=== PATIENT | female | born 1965 | race African-American/Black ===

== ENCOUNTER 2016-11-05 19:25 | Emergency (ER) | payer MEDICARE, MEDICAID ==
[~2016-11-05 19:25] MED LIST: AZOR5TAB4 PO; BUSP10TA PO; CANA100T PO; CYCL5TAB PO; CYMB60CA PO; DULO60 PO; GABA600T PO; HYDR25 PO; METF-324 PO; METF1000 PO; NEUR800T PO; NOVOLOGMXP SQ; NOVORP2 SQ; OMEP20TA PO; PRED5TAB; PREG75; PROM25TA5 PO; ULTR50TA PO; ZOLP10TA3 PO
[2016-11-05 20:14] VITALS: BP 164/96; PULSE 99; RESP 18; TEMP 98.2; O2SAT 100
[2016-11-05 20:53] VITALS: BP 200/94; PULSE 85; RESP 18; TEMP 98.4; O2SAT 98
[2016-11-05] MEDS ORDERED: VICT18IN SQ (21:17)
[2016-11-05] MEDS ORDERED: AMBI10TA PO (21:17)
[2016-11-05] MEDS ORDERED: HYDR-3133 PO (21:17)
[2016-11-05] MEDS ORDERED: CARV12.52 PO (21:17)
[2016-11-05] MEDS ORDERED: METF-382 PO (21:17)
[2016-11-05] MEDS ORDERED: PREG25 PO (21:17)
[2016-11-05] MEDS ORDERED: SACU1TAB4 PO (21:17)
[2016-11-05] MEDS ORDERED: DIGO0.25 PO (21:17)
[2016-11-05] MEDS ORDERED: CYMB60CA PO (21:17)
[2016-11-05] MEDS ORDERED: ONDANSETRON HCL 4 MG/2 ML VIAL IM ONE (21:45)
[2016-11-05] MEDS ORDERED: KETOROLAC TROMETHAMINE 60 MG/2 ML (IM) VIAL IM ONE (21:45)
--- NOTE | 2016-11-05 21:49 | PD ---
HPI Chief Complaint: Psychiatric Symptoms Time Seen by Provider: 21:28 Travel History International Travel<30 days: No Contact w/Intl Traveler<30days: No Traveled to known affect area: No History of Present Illness HPI Patient is a 50-year-old female presents emergency Department under Tara act. Patient has a history of chronic pain, neuropathy and possible rheumatoid arthritis. She was switched by her PCP, Dr. Blanco, from gabapentin to Lyrica approximate 2 weeks ago in hopes that this would be more effective for her pain. However, unfortunately her pain has increased and she has had no 3 days of intractable pain in the bilateral hands, primarily along the MCP's and PIPs. States that this is typical of her chronic pain, just worsened. Unfortunately due to her multiple drug allergies she is not able to take any narcotics and has been managing with Ultram, ibuprofen at home without much relief. Patient states that due to the pain she's not been sleeping. She states she feels "tired of being in pain", and told her mother of this this evening. Patient's mother perceives this to be a suicidal threat, and called 911 and patient was Pacheco acted and brought here. Patient states that she does feel down and occasionally depressed due to all of her underlying medical comorbidities, but in no way shape or form feels suicidal. She has future thinking and has plans to follow up with Dr. Blanco on Monday for adjustment of her Lyrica. PFSH Past Medical History Anemia: Yes Arthritis: Yes Autoimmune Disease: No Anxiety: Yes Depression: Yes Cardiac Catheterization: Yes Cardiovascular Problems: Yes (HEART ATTACK, CHF) Congestive Heart Failure: Yes Cerebrovascular Accident: Yes (2013- LEFT SIDED WEAKNESS) Diabetes: Yes Patient Takes Glucophage: No Diminished Hearing: No Endocrine: Yes Fibromyalgia: Yes Gastrointestinal Disorders: No Hypertension: Yes Insomnia: Yes Medical other: Yes (Hackberry's Disease) Musculoskeletal: Yes (DEGENRATIVE JOINT DISEASE) Neurologic: Yes (NEUROPATHY, STIMULATOR WITH RODS) Psychiatric: Yes Reproductive: Yes (UTERINE PROLAPSE ) Respiratory: No Immunizations Current: No Myocardial Infarction: Yes (2003) Tetanus Vaccination: < 5 Years Influenza Vaccination: No ?: Not Menopausal: Yes : 4 Para: 3 Miscarriage: 1 Tubal Ligation: Yes Past Surgical History Abdominal Surgery: No AICD: Yes Body Medical Devices: RODS, SCREWS IN BACK, STIMULATOR Cardiac Surgery: Yes (Defib/Pacemaker 2016 for CHF, EF 19%) Ear Surgery: No Endocrine Surgery: No Eye Surgery: No Genitourinary Surgery: No Gynecologic Surgery: Yes (RIGHT TUBE REMOVED, TUBAL LIGATION, ABLATION ) Hysterectomy: Yes Joint Replacement: Yes (R KNEE) Neurologic Surgery: Yes (Neuro stimulator for Degenerative disc Disease) Oral Surgery: No Pacemaker: Yes Thoracic Surgery: Yes (HERNIATED DISC/HARDWARE REMOVED 11/2013) Other Surgery: Yes (BREAST REDUCTION) Social History Alcohol Use: No Tobacco Use: No Substance Use: No Allergies-Medications (Allergen,Severity, Reaction): Coded Allergies: RODOLFO Inhibitors (Verified Allergy, Severe, Edema, 04/07/15) Codeine (Verified Allergy, Severe, Nausea/Vomiting, 04/07/15) Darvocet-N 100 (Verified Allergy, Severe, UNKNOWN, 04/07/15) Demerol (Verified Allergy, Severe, ITCHING, 04/07/15) Dilaudid (Verified Allergy, Severe, INTENSE BURNING TO FEET/ANXIETY, ) Lortab (Verified Allergy, Severe, ITCHING, 04/07/15) Morphine (Verified Allergy, Severe, 04/07/15) Mushroom (Verified Allergy, Severe, Nausea/Vomiting/RASH, 04/07/15) Hydrocodone (Unverified Allergy, Unknown, 06/10/15) Hydromorphone (Unverified Allergy, Unknown, 06/10/15) Oxycodone (Unverified Allergy, Unknown, 06/10/15) Ultram (Unverified Allergy, Unknown, 06/10/15) Valium (Unverified Allergy, Unknown, 06/10/15) Uncoded Allergies: ALL NARCOTICS (Adverse Reaction, Unknown, 04/07/15) Reported Meds & Prescriptions Reported Meds & Active Scripts Active Reported Victoza Inj (Liraglutide Inj) 18 Mg/3 Ml Pen Unknown Dose SQ DAILY Ambien (Zolpidem Tartrate) 10 Mg Tab 10 Mg PO HS PRN Hydroxyzine HCl 25 Mg Tab 25 Mg PO DAILY Carvedilol 12.5 Mg Tab 12.5 Mg PO BID Digoxin 0.25 Mg Tab 0.25 Mg PO DAILY Entresto (Sacubitril-Valsartan) 97-103 Mg Tab 1 Tab PO BID Cymbalta DR (Duloxetine HCl) 60 Mg Capdr 60 Mg PO DAILY Metformin ER (Metformin HCl) 1,000 Mg Alberto 1,000 Mg PO BID With evening meal Lyrica (Pregabalin) 25 Mg Cap 25 Mg PO TID Review of Systems Except as stated in HPI: all other systems reviewed are Neg Physical Exam Narrative GENERAL: Well-appearing female in no acute distress SKIN: Focused skin assessment warm/dry. HEAD: Normocephalic. EYES: No scleral icterus. No injection or drainage. ENT: Mucous membranes pink and moist. NECK: Supple CARDIOVASCULAR: Regular rate and rhythm. No murmur appreciated. RESPIRATORY: No accessory muscle use. Clear to auscultation. Breath sounds equal bilaterally. GASTROINTESTINAL: Abdomen soft, non-tender, nondistended. MUSCULOSKELETAL: No obvious deformities. Moves all extremities unremarkably. No swelling, joint erythema or edema. 5 out of 5 strength in the bilateral upper and lower extremity's. NEUROLOGICAL: Awake and alert. No obvious cranial nerve deficits. Motor grossly within normal limits. Normal speech. PSYCHIATRIC: Euthymic mood and affect. Patient denies any suicidal ideation, homicidal ideation, delusions or hallucinations. Data Data Last Documented VS Vital Signs Date Time Temp Pulse Resp B/P Pulse Ox O2 Delivery O2 Flow Rate FiO2 11/05/16 20:53 98.4 85 18 200/94 98 Room Air Orders Complete Blood Count With Diff (11/05/16 21:29) Comprehensive Metabolic Panel (11/05/16 21:29) Drug Screen, Random Urine (11/05/16 21:29) Alcohol (Ethanol) (11/05/16 21:29) Ondansetron Inj (Zofran Inj) (11/05/16 21:45) Ketorolac Inj (Toradol Inj) (11/05/16 21:45) MDM Medical Decision Making Medical Screen Exam Complete: Yes Emergency Medical Condition: Yes Medical Record Reviewed: Yes Differential Diagnosis 50-year-old female with history of chronic pain disorder here under Pacheco act after she told her mother that she was "sick of being in pain" and mother perceives this as a suicidal threat. Here in the emergency department she is able to contract for safety. She admits to feeling occasionally down and depressed but does not feel suicidal. My strong suspicion is that this was a misunderstanding. Patient is future thinking, and I do not think that psychiatric evaluation is warranted at this time. This was discussed with patient. She vehemently denies needing psychiatric evaluation. Again she is able to contract for safety at this time and her Pacheco acted will be lifted and discharged home with outpatient PCP follow-up. Narrative Course Patient was given dose of Toradol with Zofran per her request for pain. Pacheco act lifted and discharge. Diagnosis Primary Impression: Chronic pain syndrome Referrals: Torres Blanco MD 2 days Additional Instructions: Home pain regimen as prescribed. Follow-up with Dr. Blanco on Monday as scheduled. Med/Other Pt SpecificInfo: No Change to Meds Disposition: DISCHARGE HOME Condition: Stable Deb Vance MD Nov 05, 2016 21:49
== END 2016-11-05 22:57 | disposition home or self-care (01) ==
LOC: NEPD 19:25
DX: G89.4 Chronic pain syndrome (principal); G62.9 Polyneuropathy, unspecified; D64.9 Anemia, unspecified; I25.2 Old myocardial infarction; I50.9 Heart failure, unspecified; E11.9 Type 2 diabetes mellitus without complications; M79.7 Fibromyalgia; I10 Essential (primary) hypertension; Z95.810 Presence of automatic (implantable) cardiac defibrillator; Z95.0 Presence of cardiac pacemaker
CPT/HCPCS: 96372; 99284; J1885; J2405